=== PATIENT | male | born 1970 | race Caucasian/White ===

== ENCOUNTER 2016-08-03 05:20 | Emergency (ER) | payer BC ==
[2016-08-03 07:13] LABS: Urine Bacteria Absent (Absent); Urine Bilirubin Negative (Negative); Urine Glucose Negative (Negative); Urine Nitrite Negative (Negative)
[2016-08-03 07:29] LABS: Hematocrit 44 % (42-52); Hemoglobin 15.1 g/dl (14.0-18.0); Mean Corpuscular HGB Conc 34 g/dl (31-36); Mean Corpuscular Hemoglobin 30 pg (27-31); Mean Corpuscular Volume 87 fL (80-94); Mean Platelet Volume 8 um3 (7.4-10.4); Red Cell Distribution Width 14 % (10.5-15)
[2016-08-03 07:41] VITALS: BP 154/92
[2016-08-03 07:44] LABS: Albumin 4.7 g/dL (3.2-5.2); BUN/Creatinine Ratio 14.6 (8-20); C Reactive Protein 1.57 mg/L (< 5.00); Calcium 9.8 mg/dL (8.6-10.3); EGFR Non-African American 77.7 (>60); Potassium 4.1 mmol/L (3.5-5.0); Total Bilirubin 0.6 mg/dL (0.2-1.0); Total Protein 7.7 g/dL (6.4-8.9)
--- NOTE | 2016-08-03 08:27 | ED ---
Gay Eid SooYoung, scribed for Robbin San MD on 08/03/16 at 0737 . GI/ HPI - HPI Summary HPI Summary: A 45 y/o M presents to ED with c/o hematuria onset a few days ago. Denies pain. He notes that he may have been dehydrated recently. States previously healthy, not on blood thinner medications. - History of Current Complaint Chief Complaint: EDUrogenitalProblems Stated Complaint: BLOOD IN URINE X2DAYS Hx Obtained From: Patient Onset/Duration: Started Days Ago, Still Present Severity: Mild Pain Intensity: 0 - out of 10 - Allergy/Home Medications Allergies/Adverse Reactions: Allergies Allergy/AdvReac Type Severity Reaction Status Date / Time No Known Allergies Allergy Verified 05/09/16 19:31 PMH/Surg Hx/FS Hx/Imm Hx Previously Healthy: Yes Sensory History: Denies: Hx Deafness Infectious Disease History: No Infectious Disease History: Denies: Traveled Outside the [place] in Last 30 Days - Family History Known Family History: Positive: Cardiac Disease - father - [place] at age 62, Hypertension - Social History Occupation: Employed Full-time Lives: With Family Alcohol Use: Weekly Alcohol Amount: 3-4 Substance Use Type: Reports: None Hx Tobacco Use: No Smoking Status (MU): Never Smoked Tobacco Review of Systems Negative: Fever Positive: hematuria. Negative: dysuria All Other Systems Reviewed And Are Negative: Yes Physical Exam Triage Information Reviewed: Yes Vital Signs On Initial Exam: Initial Vitals Temp Pulse Resp BP Pulse Ox 98.2 F 71 15 166/99 94 08/03/16 05:37 08/03/16 05:37 08/03/16 05:37 08/03/16 05:37 08/03/16 05:37 Vital Signs Reviewed: Yes Appearance: Positive: Well-Appearing, No Pain Distress Skin: Positive: Warm, Skin Color Reflects Adequate Perfusion, Dry Head/Face: Positive: Normal Head/Face Inspection Eyes: Positive: Normal ENT: Positive: Normal ENT inspection Neck: Positive: Supple, Nontender Respiratory/Lung Sounds: Positive: Clear to Auscultation, Breath Sounds Present Cardiovascular: Positive: RRR Abdomen Description: Positive: Nontender, Soft Bowel Sounds: Positive: Present Musculoskeletal: Positive: Normal Neurological: Positive: Normal Psychiatric: Positive: Normal, Affect/Mood Appropriate Diagnostics - Vital Signs Vital Signs Temp Pulse Resp BP Pulse Ox 08/03/16 05:37 98.2 F 71 15 166/99 94 - Laboratory Lab Results: Lab Results 08/03/16 Range/Units 05:40 Urine Color Red A Urine Appearance Cloudy Urine pH 5.0 (5-9) Ur Specific [place] 1.018 (1.010-1.030) Urine Protein 1+(30 mg/dl) H (Negative) Urine Ketones Negative (Negative) Urine Blood 3+ H (Negative) Urine Nitrate Negative (Negative) Urine Bilirubin Negative (Negative) Urine Urobilinogen Negative (Negative) Ur Leukocyte Esterase Negative (Negative) Urine WBC (Auto) Absent (Absent) Urine RBC (Auto) 3+(>10/hpf) H (Absent) Urine Bacteria Absent (Absent) Urine Glucose Negative (Negative) Urine Ascorbic Acid * H (Negative) Result Diagrams: 08/03/16 07:19 08/03/16 07:19 Lab Statement: Any lab studies that have been ordered have been reviewed, and results considered in the medical decision making process. GIGU Course/Dx - Course Course Of Treatment: Mr. Mendoza presented with hematuria without any other C /O. He had a small amount of microhematuria on U/A and I reassured him and recommended F/U. - Diagnoses Provider Diagnoses: Hematuria Discharge - Discharge Plan Condition: Stable Disposition: HOME Patient Education Materials: Hematuria (ED) Referrals: Ronaldo Driscoll MD [Primary Care Provider] - Cirilo Mays MD [Medical Doctor] - Additional Instructions: Follow up with urology, Dr. Mays. Please return to the ED if you experience new or worsening symptoms. The documentation as recorded by the Gay mallory SooYoung accurately reflects the service I personally performed and the decisions made by me, Robbin San MD.
== END 2016-08-03 08:00 | disposition home or self-care (01) ==
LOC: ED 05:20
DX: R31.9 Hematuria, unspecified (principal)
CPT/HCPCS: 36415; 80053; 81003; 81015; 85025; 85610; 85730; 86140; 99282

== ENCOUNTER 2017-02-23 16:46 | Emergency (ER) | payer BC ==
[2017-02-23 18:56] VITALS: BP 134/90
== END 2017-02-23 19:44 | disposition left against medical advice (07) ==
LOC: ED 16:46
DX: R10.9 Unspecified abdominal pain (principal); Z53.21 Procedure and treatment not carried out due to patient leaving prior to being seen by health care provider

== ENCOUNTER → 2018-12-16 13:02 | Emergency (ER) | payer BC ==
[2018-12-16 14:01] LABS: Urine Appearance Clear; Urine Bacteria Absent (Absent); Urine Bilirubin Negative (Negative); Urine Blood 2+ (Negative); Urine Color Yellow; Urine Glucose Negative (Negative); Urine Ketones Negative (Negative); Urine Nitrite Negative (Negative); Urine Protein Negative (Negative); Urine Red Blood Cell 3+(>10/hpf) (Absent); Urine Specific Gravity 1.016 (1.010-1.030); Urine Urobilinogen Negative (Negative); Urine White Blood Cell Trace(0-5/hpf) (Absent)
[2018-12-16 14:31] LABS: ABS Basophils 0.1 10^3/ul (0-0.2); ABS Lymphocytes 2.1 10^3/ul (1.0-4.8); ABS Monocytes 0.3 10^3/ul (0-0.8); ABS Neutrophils 3.9 10^3/ul (1.5-7.7); Eosinophil % 0.7 %; Hematocrit 43 % (42-52); Hemoglobin 15.1 g/dL (14.0-18.0); Mean Corpuscular HGB Conc 35 g/dL (31-36); Mean Corpuscular Hemoglobin 30 pg (27-31); Mean Corpuscular Volume 86 fL (80-94); Mean Platelet Volume 8.8 fL (7.4-10.4); Nucleated Red Blood Cells % 0.1; Platelet Count 322 10^3/uL (150-450); Red Blood Count 5.03 10^6 /uL (4.18-5.48); Red Cell Distribution Width 14 % (10-15); White Blood Count 6.4 10^3/uL (3.5-10.8)
--- NOTE | 2018-12-16 14:45 | ED ---
GI/ HPI - HPI Summary HPI Summary: A 48 y/o male presents to [facility] with a chief complaint of urinary urgency today. He says that he had the urgency, but then would not urinate much. He says that he had some abdominal pain but it is gone now. He rates his current pain as a 0/10 in severity. He denies a Hx of kidney stones. 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 Negative: Fever Aggravating Factor(s): Nothing Alleviating Factor(s): Nothing - Allergy/Home Medications Allergies/Adverse Reactions: Allergies Allergy/AdvReac Type Severity Reaction Status Date / Time No Known Allergies Allergy Verified 02/23/17 16:49 Home Medications: Home Medications NK [No Home Medications Reported] 12/16/18 [History Confirmed 12/16/18] PMH/Surg Hx/FS Hx/Imm Hx History: Denies: Hx Kidney Stones Sensory History: Denies: Hx Deafness EENT History: Denies: Hx Deafness Infectious Disease History: No Infectious Disease History: Denies: Traveled Outside the [place] in Last 30 Days - Family History Known Family History: Positive: Cardiac Disease - father - [place] at age 62, Hypertension - Social History Alcohol Use: Weekly Alcohol Amount: 3-4 Substance Use Type: Reports: None Hx Tobacco Use: No Smoking Status (MU): Never Smoked Tobacco Review of Systems Negative: Fever 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 Skin: The skin is warm and dry and skin color reflects adequate perfusion. HEENT: The head is normocephalic and atraumatic. The pupils are equal and reactive. The conjunctivae are clear and without drainage. Nares are patent and without drainage. Mouth reveals moist mucous membranes and the throat is without erythema and exudate. The external ears are intact. The ear canals are patent and without drainage. The tympanic membranes are intact. Neck: The neck is supple with full range of motion and non-tender. There are no carotid bruits. There is no neck vein distension. Respiratory: Chest is non-tender. Lungs are clear to auscultation and breath sounds are symmetrical and equal. Cardiovascular: Heart is regular rate and rhythm. There is no murmur or rub auscultated. There is no peripheral edema and pulses are symmetrical and equal. Abdomen: The abdomen is soft and non-tender. There are normal bowel sounds heard in all four quadrants and there is no organomegaly palpated. Musculoskeletal: There is no back tenderness noted. Extremities are non-tender with full range of motion. There is good capillary refill. There is no peripheral edema or calf tenderness elicited. Neurological: Patient is alert and oriented to person, place and time. The patient has symmetrical motor strength in all four extremities. Cranial nerves are grossly intact. Deep tendon reflexes are symmetrical and equal in all four extremities. Psychiatric: The patient has an appropriate affect and does not exhibit any anxiety or depression. Triage Information Reviewed: Yes Vital Signs On Initial Exam: Initial Vitals Temp Pulse Resp BP Pulse Ox 99.1 F 67 16 185/107 98 12/16/18 13:24 12/16/18 13:24 12/16/18 13:24 12/16/18 13:24 12/16/18 13:24 Vital Signs Reviewed: Yes Diagnostics - Vital Signs Vital Signs Temp Pulse Resp BP Pulse Ox 12/16/18 13:24 99.1 F 67 16 185/107 98 - Laboratory Lab Results: Lab Results 12/16/18 12/16/18 Range/Units 13:30 14:12 WBC 6.4 (3.5-10.8) 10^3/uL RBC 5.03 (4.18-5.48) 10^6 /uL Hgb 15.1 (14.0-18.0) g/dL Hct 43 (42-52) % MCV 86 (80-94) fL MCH 30 (27-31) pg MCHC 35 (31-36) g/dL RDW 14 (10-15) % Plt Count 322 (150-450) 10^3/uL MPV 8.8 (7.4-10.4) fL Neut % (Auto) 60.5 % Lymph % (Auto) 33.0 % Glynn % (Auto) 4.8 % Eos % (Auto) 0.7 % Baso % (Auto) 1.0 % Absolute Neuts (auto) 3.9 (1.5-7.7) 10^3/ul Absolute Lymphs (auto) 2.1 (1.0-4.8) 10^3/ul Absolute Monos (auto) 0.3 (0-0.8) 10^3/ul Absolute Eos (auto) 0.0 (0-0.6) 10^3/ul Absolute Basos (auto) 0.1 (0-0.2) 10^3/ul Absolute Nucleated RBC 0.0 10^3/ul Nucleated RBC % 0.1 Urine Color Yellow Urine Appearance Clear Urine pH 5.0 (5-9) Ur Specific [place] 1.016 (1.010-1.030) Urine Protein Negative (Negative) Urine Ketones Negative (Negative) Urine Blood 2+ A (Negative) Urine Nitrate Negative (Negative) Urine Bilirubin Negative (Negative) Urine Urobilinogen Negative (Negative) Ur Leukocyte Esterase Negative (Negative) Urine WBC (Auto) Trace(0-5/hpf) (Absent) Urine RBC (Auto) 3+(>10/hpf) A (Absent) Urine Bacteria Absent (Absent) Urine Glucose Negative (Negative) Result Diagrams: 12/16/18 14:12 12/16/18 14:12 Lab Statement: Any lab studies that have been ordered have been reviewed, and results considered in the medical decision making process. - CT abdomen/pelvis CT Interpretation Completed By: Radiologist Summary of CT Findings: 1. THERE IS A 1 CM CALCULUS OF THE BLADDER IN THE REGION OF THE LEFT TRIGONE. THERE IS. FULLNESS OF THE LEFT RENAL COLLECTING SYSTEM WITHOUT DYLAN HYDRONEPHROSIS. THERE IS A. NONOBSTRUCTING CALCULUS OF THE UPPER POLE OF THE LEFT KIDNEY. 2. HEPATOMEGALY WITH FATTY INFILTRATION OF THE LIVER. ED physician has reviewed this imaging report. GIGU Course/Dx - Course Course Of Treatment: Mr. Mendoza had some left flank pain that was severe this morning and is mild at the time I see him. His urine had a spot of blood in and his exam was unremarkable. He was nontoxic in appearance with stable vitals. CT scan revealed a 1 cm bladder stone. Presumably he just pass this stone and I recommended that he strain his urine to catch it and follow up with urology. - Diagnoses Provider Diagnoses: Kidney stone Discharge - Sign-Out/Discharge Documenting (check all that apply): Patient Departure - DC Patient Received Moderate/Deep Sedation with Procedure: No - Discharge Plan Condition: Stable Disposition: HOME Patient Education Materials: Kidney Stones (ED) Referrals: Ronaldo Driscoll MD [Primary Care Provider] - (2-3 days) Cirilo Mays MD [Medical Doctor] - Additional Instructions: Follow up with Dr. Mays, urology. Return to the emergency department if you experience any new or worsening symptoms. - Billing Disposition and Condition Condition: STABLE Disposition: Home - Attestation Statements Document Initiated by Vishal: Yes Documenting Scribe: Kdaen Sands Provider For Whom Vishal is Documenting (Include Credential): Robbin San MD Scribe Attestation: I, Kaden Sands, scribed for Robbin San MD on 12/16/18 at 2155. Scribe Documentation Reviewed: Yes Provider Attestation: The documentation as recorded by the Kaden mallory accurately reflects the service I personally performed and the decisions made by me, Robbin San MD Status of Scribe Document: Viewed
[2018-12-16 14:48] LABS: Albumin 5.1 g/dL (3.2-5.2); Albumin/Globulin Ratio 1.7 (1-3); BUN/Creatinine Ratio 15.2 (8-20); C Reactive Protein 1.6 mg/L (<8.01); Calcium 9.9 mg/dL (8.6-10.3); EGFR African American 97.2 (>60); EGFR Non-African American 80.3 (>60); Potassium 4.1 mmol/L (3.5-5.0); Total Bilirubin 0.5 mg/dL (0.2-1.0); Total Protein 8.1 g/dL (6.4-8.9)
[2018-12-16 16:07] VITALS: BP 148/87
== END | disposition home or self-care (01) ==
LOC: ED 13:02
DX: N20.0 Calculus of kidney (principal); K76.0 Fatty (change of) liver, not elsewhere classified; R16.0 Hepatomegaly, not elsewhere classified
CPT/HCPCS: 36415; 74176; 80053; 81003; 81015; 83605; 83690; 84153; 84484; 85025; 86140; 87086; 99282; G0103

== ENCOUNTER → 2018-12-24 07:14 | Day surgery (SDC) | payer BC ==
--- NOTE | 2018-12-22 18:27 | HP ---
CC: Dr. Ronaldo Driscoll * ADMITTING HISTORY AND PHYSICAL: DATE OF ADMISSION: 12/24/18 ADMITTING DIAGNOSES: 1. Calculus, left distal ureter. 2. Probable left ureterocele. PLANNED SURGICAL PROCEDURE: Left ureterocele incision, left ureteroscopy, possible laser, and left stent insertion. SURGEON: Dr. Mays. HISTORY OF PRESENT ILLNESS: Kevin Mendoza is a 48-year-old gentleman who originally about 2 months ago had gross hematuria, but did not have any workup done at that time. Then last week, he had some increasing left flank pain and some increasing urinary frequency and urgency. He was evaluated initially in the emergency room and then in my office where ultrasound showed an approximately 1 cm calculus located within what appears to be a ureterocele involving the left distal ureter. A flexible cystoscopy in my office revealed changes, which to me visually looked consistent more with significant edema surrounding the area of the left side of the trigone rather than a typical appearance of a ureterocele. Regardless, he continues to have a calculus within this area either of edema or the ureterocele and is now being brought in for management of the same. PAST MEDICAL HISTORY: Unremarkable. PAST SURGICAL HISTORY: Negative. MEDICATIONS ON ADMISSION: None. ALLERGIES: No known drug allergies. FAMILY HISTORY: Negative for stones. SOCIAL HISTORY: Smoking history: He is a former smoker, who quit 15 years ago , with a 20-pack year smoking history prior to that. REVIEW OF SYSTEMS: He is otherwise in excellent health. He denies any chest pain or shortness of breath. There is no history of diabetes mellitus or any other major systemic illness. PHYSICAL EXAMINATION GENERAL: Reveals a pleasant, healthy-appearing, middle-aged gentleman. VITAL SIGNS: Blood pressure is 170/94, pulse 85 per minute, temperature 98.3, oxygen saturation 97% on room air. LUNGS: Clear bilaterally. CARDIOVASCULAR: Regular rate and rhythm. S1, S2. ABDOMEN: Soft with mild left flank tenderness. IMPRESSION: A 48-year-old gentleman with a calculus in the left distal ureter with either associated ureterocele or significant edema of the distal ureter. PLAN: Planned procedure is left ureterocele incision, left ureteroscopy, possible laser, and left stent insertion. [id number]/[facility] #: [id number] [facility]
[~2018-12-24 07:14] MED LIST: Buffered Lidocaine 1% SYRIN* 1 ML/SYRINGE INTRADERM ONE; Dexamethasone IV* 4 MG/ML 1 ML (4 MG) ONE; DiMENhydriNATE IV* 50 MG/ML VIAL IV PUSH PRN; Famotidine IV* 10 MG/ML 2 ML (20 mg) IV ONE; Famotidine IV* 10 MG/ML 2 ML (20 mg) ONE; Gentamicin ADULT (*) 160 MG in NS 0.9% 100 ML* 100 ML IVPB SCH; HYDROmorphone INJ1* 1 MG/ML SYRINGE IV PRN; Iohexol 180 (CONTRAST) 10 ML SDV IV ONE; Ketorolac INJ* 30 MG/ML 1 ML VIAL ONE; Lactated Ringers 1000 ML Bag* 1,000 ML IV SCH; Lidocaine 2% PF * 5 ML VIAL ONE; Midazolam* 1 MG/ML 5 ML VIAL (5 MG) ONE; Naloxone* 0.4 MG/ML 1 ML VIAL IV PRN; Ondansetron INJ* 2 MG/ML VIAL ONE; Propofol* 10 MG/ML 20 ML BTL ONE; cefTRIAXone(*) 2 GM ADDV.VIAL IVPB ONE; fentaNYL* 50 MCG/ML 2 ML VIAL (100 MCG VIAL) ONE; oxyCODONE/Acetamin 5/325 MG* TAB PO PRN
[2018-12-24 11:32] VITALS: BP 127/76
--- NOTE | 2018-12-24 14:08 | OP ---
CC: Dr. Ronaldo Driscoll * DATE OF OPERATION: 12/24/18 - [facility] DATE OF : 68 SURGEON: Cirilo Mays MD ANESTHESIOLOGIST: Dr. Clemons ANESTHESIA: General. PRE-OP DIAGNOSES: 1. Calculus left ureter. 2. Left ureterocele (or significant left ureteral edema mimicking a ureterocele ). POST-OP DIAGNOSES: 1. Calculus left distal ureter. 2. Significant edema surrounding left orifice. OPERATIVE PROCEDURE: Cystoscopy, left retrograde pyelogram, left ureteroscopy, and laser lithotripsy and removal of stone fragments, and left stent insertion. INDICATIONS: Kevin Mendoza is a 48-year-old gentleman who is noted to have a persistent approximately 1 cm calculus in the left distal ureter. The ultrasound had an appearance suggestive of a left urethrocele, although to my visualization on office cystoscopy this did not have the typical ureterocele appearance and I suspected it could be edema secondary to the calculus. COMPLICATIONS: None. POSTOPERATIVE CONDITION: Stable. STENT USED: 8-Gambian stent [place] universal length, left ureter. OPERATIVE FINDINGS: 1. Normal-appearing urethra, mildly enlarged prostate. 2. Significant edema on the left side of the trigone obliterating the left orifice and secondary to a 1 to 1.2 cm sharp edge calculus in the left distal ureter. DESCRIPTION OF PROCEDURE: After induction of general anesthesia, the patient was placed in dorsal lithotomy position. The above mentioned findings were noted on cystoscopy. Because of the significant amount of edema the orifice could not be visualized, so I ended up using the ureteroscope to locate the orifice and then to intubate it with a guidewire. Once this was done, the ureteroscope was removed and then passed along side the guidewire. I was able to visualize a fairly large stent to 12 mm sharp edge calculus in the left distal ureter and using a 550 micron Holmium laser, this was broken up into multiple small fragments. All of the sizeable fragments were removed and an 8 [place]ian [place] stent was introduced and positioned under fluoroscopy with good proximal and distal positioning obtained. The patient tolerated the procedure satisfactorily and was transferred back to the recovery area in stable condition. [id number]/[facility] #: [id number] [facility]
== END | disposition home or self-care (01) ==
LOC: OR 07:14
PROVIDERS: ATTEND Urology
DX: N20.1 Calculus of ureter (principal); Z87.891 Personal history of nicotine dependence; R60.9 Edema, unspecified
CPT/HCPCS: 74420; 82365; 88300; C2625; J0696; J1100; J1580; J1885; J2250; J2405; J2704; J3010